=== PATIENT | male | born 1975 | race Caucasian/White ===

== ENCOUNTER → 2018-04-28 | Outpatient (CLI) | payer MEDICARE ==
--- NOTE | 2018-04-28 15:48 | XR ---
Left hand HISTORY: Left hand swelling, trauma or digit 3 views of the left hand There is a transverse fracture through the proximal aspect of the proximal phalanx of the fourth digi t of the left hand, possibly intra-articular, no dislocation. Lateral exam is somewhat limited for ev aluation. IMPRESSION: Fourth digit fracture.
== END | disposition home or self-care (01) ==
LOC: RADXRYALE 11:45
PROVIDERS: ATTEND Internal Medicine
DX: S62.615A Displaced fracture of proximal phalanx of left ring finger, initial encounter for closed fracture (principal)

== ENCOUNTER → 2019-02-01 | Outpatient (CLI) | payer MEDICARE ==
--- NOTE | 2019-02-01 14:13 | US ---
EXAMINATION TYPE: US bladder DATE OF EXAM: 02/01/2019 COMPARISON: None CLINICAL HISTORY: 43-year-old male status post void for volume per caregiver. TECHNIQUE: Multiple sonographic images of the bladder are obtained. FINDINGS: Barrel Raiser Helper notes: Patient voided for urinalysis prior to Ultrasound study. EXAM MEASUREMENTS: Post Void Residual Volume: 18.5 mL Underdistention of the bladder limits its evaluation. Color Doppler performed to assess ureteral jets. Bilateral Jets seen: Yes Normal Post Void Residual (less than 50ml): Yes IMPRESSION: Post void bladder volume of 19 mL is increased but falls within acceptable limits.
[2019-02-01 15:51] LABS: Appearance,Urine Clear (Clear); Bilirubin,Urine Negative (Negative); Blood,Urine Negative (Negative); Color,Urine Yellow; Glucose,Urine (UA) Negative (Negative); Ketones,Urine Negative (Negative); Leukocyte Esterase,Urine Small (Negative); Mucus,Urine Rare /hpf; Nitrite,Urine Negative (Negative); Protein,Urine Negative (Negative); RBC,Urine 1 /hpf (0-5); Specific Gravity,Urine 1.013 (1.001-1.035); Urobilinogen,Urine <2.0 mg/dL (<2.0); WBC,Urine 10 /hpf (0-5)
== END | disposition home or self-care (01) ==
LOC: RADUSWWP 12:27
PROVIDERS: ATTEND Psychiatry & Neurology Neurology
DX: R39.81 Functional urinary incontinence (principal)
CPT/HCPCS: 76857; 81001; 87077; 87086; 87186

== ENCOUNTER → 2019-02-06 | Outpatient (CLI) | payer MEDICARE ==
--- NOTE | 2019-02-06 12:03 | CT ---
EXAMINATION TYPE: CT brain wo con DATE OF EXAM: 02/06/2019 COMPARISON: CT brain January 12, 2010. HISTORY: Hydrocephalus with SHRINK PIT OPERATOR shunt. Automated Exposure Control for Dose Reduction was Utilized. TECHNIQUE: CT scan of the head is performed without contrast. FINDINGS: There is persistent right frontal gage hole with SHRINK PIT OPERATOR shunt catheter terminating at the level of foramen of [place]. There is right-sided craniotomy change. There is additional left sided gage hol e and SHRINK PIT OPERATOR shunt catheter terminating superiorly near the anterior interhemispheric fissure. Positionin g unchanged from 2010 study. New ventricular and sulcal prominence versus [address] CT. No new marked hydrocephalus. Persistent multifo lisset areas of encephalomalacia most prominent right temporal lobe but additional areas of involvement bilaterally more prominent on the right redemonstrated. No acute intracranial hemorrhage. Globes are intact and visualized sinuses are clear. IMPRESSION: As above.
== END | disposition home or self-care (01) ==
LOC: RADCTMAIN 11:34
PROVIDERS: ATTEND Psychiatry & Neurology Neurology
DX: G93.89 Other specified disorders of brain (principal); Z98.2 Presence of cerebrospinal fluid drainage device
CPT/HCPCS: 70450

== ENCOUNTER → 2019-03-29 | Outpatient (CLI) | payer MEDICARE ==
[2019-03-29 10:42] LABS: HCT 46.3 % (39.0-53.0); HGB 15.6 gm/dL (13.0-17.5); MCH 32.3 pg (25.0-35.0); MCHC 33.6 g/dL (31.0-37.0); MCV 96.1 fL (80.0-100.0); Mean Platelet Volume 8.8; Platelet Count 233 k/uL (150-450); RBC 4.82 m/uL (4.30-5.90); RDW 12.6 % (11.5-15.5); WBC 4.5 k/uL (3.8-10.6)
[2019-03-29 16:05] LABS: African American GFR (CKD) 106.4 (60.0-200.0); Albumin 4.7 g/dL (3.80-4.90); Albumin/Globulin Ratio 2.04 (1.60-3.17); Anion Gap 5.2 mmol/L (4.00-12.00); Calcium 9.9 mg/dL (8.7-10.3); Carbon Dioxide 28.8 mmol/L (21.6-31.8); Chol/HDL Ratio 3.1; Globulin 2.3 g/dL (1.6-3.3); LDL Cholesterol,Calculated 111.2 mg/dL (0.0-131.0); Non-African American GFR(CKD) 91.8 (60.0-200.0); Potassium 4.6 mmol/L (3.5-5.5); Total Bilirubin 0.3 mg/dL (0.2-1.2); VLDL Calculation 14.8 mg/dL (5.00-40.00)
== END | disposition home or self-care (01) ==
LOC: LABWHC1 09:38
PROVIDERS: ATTEND Internal Medicine
DX: Z00.01 Encounter for general adult medical examination with abnormal findings (principal); Z13.220 Encounter for screening for lipoid disorders; I10 Essential (primary) hypertension; E03.9 Hypothyroidism, unspecified
CPT/HCPCS: 36415; 80053; 80061; 82306; 85027

== ENCOUNTER → 2021-02-12 | Outpatient (CLI) | payer OTHER, MEDICARE ==
--- NOTE | 2021-02-12 12:28 | CT ---
EXAMINATION TYPE: CT brain wo con DATE OF EXAM: 02/12/2021 COMPARISON: 02/06/2019 HISTORY: Hydrocephalus CT DLP: 1278 mGycm. Automated Exposure Control for Dose Reduction was Utilized. TECHNIQUE: CT scan of the head is performed without contrast. FINDINGS: There is persistent right frontal gage hole with RENTAL CLERK shunt catheter terminating at the lev el of foramen of [place]ro. There is right-sided craniotomy change. There is additional left sided gage h ole and RENTAL CLERK shunt catheter terminating superiorly near the anterior interhemispheric fissure. Position ing unchanged from 2010 study. New ventricular and sulcal prominence versus 2010 CT. Ventricular size is stable with findings persistently suggestive of hydrocephalus.. Persistent multif ocal areas of encephalomalacia most prominent right temporal lobe but additional areas of involvement bilaterally more prominent on the right redemonstrated. No acute intracranial hemorrhage. Globes are intact and visualized sinuses are clear. IMPRESSION: 1. Postsurgical changes with encephalomalacia and RENTAL CLERK shunt catheter. There remains evidence of modera te hydrocephalus stable from prior exam.
== END | disposition home or self-care (01) ==
LOC: RADCTMAIN 11:39
PROVIDERS: ATTEND Psychiatry & Neurology Neurology
DX: G91.9 Hydrocephalus, unspecified (principal); G93.89 Other specified disorders of brain; Z98.2 Presence of cerebrospinal fluid drainage device
CPT/HCPCS: 70450

== ENCOUNTER → 2021-07-02 | Outpatient (CLI) | payer MEDICARE, OTHER ==
--- NOTE | 2021-07-02 12:52 | XR ---
EXAMINATION TYPE: XR chest 1V DATE OF EXAM: 07/02/2021 COMPARISON: Chest x-ray 08/04/2010 HISTORY: Screening for tuberculosis TECHNIQUE: Single frontal view of the chest is obtained. FINDINGS: Exam is stable. Postop changes are noted to the spine and left clavicle, there is a calcif ied shunt tubing likely ventriculoperitoneal tubing as on prior. Skeleton shows a similar appearance. Cardiac mediastinal silhouette shows no interval change. No evident airspace disease, pneumothorax, or pleural effusion. IMPRESSION: No acute process.
== END | disposition home or self-care (01) ==
LOC: RADXRYALE 10:54
PROVIDERS: ATTEND Internal Medicine
DX: Z11.1 Encounter for screening for respiratory tuberculosis (principal)
CPT/HCPCS: 71045